=== PATIENT | female | born 1975 | race American Indian/Alaskan Native ===

== ENCOUNTER 2019-08-07 12:42 | Emergency (ER) | payer SELFPAY ==
--- NOTE | 2019-08-07 12:56 | Event Note ---
ED Screening Note ED Screening Note: hx of asthma couple of weeks +sob, wheezing, chest tightness no fever no sick contacts no productive couhv= has not used an inhaler in two years non smoker no allergies to meds This initial assessment/diagnostic orders/clinical plan/treatment(s) is/are subject to change based on patients health status, clinical progression and re- assessment by fellow clinical providers in the ED. Further treatment and workup at subsequent clinical providers discretion. Patient/guardian urged not to elope from the ED as their condition may be serious if not clinically assessed and managed. Initial orders include: CXR neb tx, steroids
[2019-08-07] MEDS ORDERED: ALBUTEROL 2.5 MG/3 ML NEBU IH ONE (12:57)
[2019-08-07] MEDS ORDERED: IPRATROPIUM 0.02% NEBU 2.5 ML IH ONE (12:57)
[2019-08-07] MEDS ORDERED: dexAMETHasone 20 MG/5 ML VIAL IV ONE (12:57)
--- NOTE | 2019-08-07 13:40 | XRay Report ---
CHEST 1 VIEW INDICATION: SOB. COMPARISON: None. FINDINGS: Support devices: None. Heart: Normal. Lungs/Pleura: No acute pulmonary or pleural findings. IMPRESSION: 1. No acute findings. Signer Name: Kishore Mancuso MD Signed: 08/07/2019 1:35 PM Workstation Name: [id number]
--- NOTE | 2019-08-07 14:20 | Emergency Department Report ---
ED Shortness of Breath HPI - General Chief Complaint: Adult Asthma Stated Complaint: ASTHMA Time Seen by Provider: 08/07/19 12:54 Source: patient Mode of arrival: Ambulatory Limitations: No Limitations - History of Present Illness Initial Comments: Mrs. Cavanaugh is a 43-year-old female with history of asthma who presents with shortness of breath for several weeks. She has wheezing. She denies fever. She denies sick contacts. No productive cough. Has not used an inhaler in 2 years. Has a history of tracheostomy status post prolonged postsurgical course, sepsis at [facility]. She admits to anxiety and depression which has affected her breathing. She denies suicidal ideation or homicidal ideation. She does admit to being under a lot of stress. No use of oral contraceptives. Patient had tubal ligation over 10 years ago. MD Complaint: shortness of breath -: Gradual, week(s) Severity: mild Consistency: constant Improves With: nothing Worsens With: nothing Known History Of: asthma - Related Data Previous Rx's Medication Instructions Recorded Last Taken Type Albuterol INH(or & Nicu Only) 2 puff IH QID PRN #8.5 gram 08/07/19 Unknown Rx [ProAir HFA Inhaler] predniSONE [Deltasone] 3 tab PO QDAY 3 Days #6 tab 08/07/19 Unknown Rx Allergies Allergy/AdvReac Type Severity Reaction Status Date / Time No Known Allergies Allergy Unverified 08/07/19 12:44 ED Review of Systems ROS: Stated complaint: ASTHMA Other details as noted in HPI Comment: All other systems reviewed and negative Constitutional: denies: fever, malaise Cardiovascular: denies: chest pain ED Past Medical Hx - Past Medical History Previous Medical History?: Yes Hx Asthma: Yes Additional medical history: COMA X 2 MONTHS, sepsis - Surgical History Past Surgical History?: Yes Additional Surgical History: section x2, tubal ligation, incision and drainage of "cyst" - Social History Smoking Status: Never Smoker Substance Use Type: None - Medications Home Medications: Home Medications Medication Instructions Recorded Confirmed Last Taken Type Albuterol INH(or & Nicu Only) 2 puff IH QID PRN #8.5 gram 08/07/19 Unknown Rx [ProAir HFA Inhaler] predniSONE [Deltasone] 3 tab PO QDAY 3 Days #6 tab 08/07/19 Unknown Rx ED Physical Exam - General Limitations: No Limitations General appearance: alert, in no apparent distress - Head Head exam: Present: atraumatic, normocephalic - Eye Eye exam: Present: normal appearance - ENT ENT exam: Present: mucous membranes moist - Neck Neck exam: Present: normal inspection, full ROM - Respiratory Respiratory exam: Present: normal lung sounds bilaterally. Absent: respiratory distress, wheezes, rales, rhonchi - Cardiovascular Cardiovascular Exam: Present: regular rate, normal rhythm, normal heart sounds. Absent: systolic murmur, diastolic murmur, rubs, gallop - GI/Abdominal GI/Abdominal exam: Present: soft, normal bowel sounds. Absent: distended, tenderness, guarding, rebound - Extremities Exam Extremities exam: Present: normal inspection - Back Exam Back exam: Present: normal inspection - Neurological Exam Neurological exam: Present: alert, oriented X3 - Psychiatric Psychiatric exam: Present: normal affect, depressed, anxious. Absent: suicidal ideation - Skin Skin exam: Present: warm, dry, intact, normal color. Absent: rash ED Course Vital Signs 08/07/19 08/07/19 08/07/19 12:47 12:48 13:48 Temperature 98.6 F Pulse Rate 89 83 Pulse Rate [ 94 H Anterior Bilateral Throughout] Respiratory 20 Rate Respiratory 18 Rate [Anterior Bilateral Throughout] Blood Pressure 136/85 O2 Sat by Pulse 99 99 Oximetry ED Medical Decision Making - Radiology Data Radiology results: report reviewed Chest radiograph no acute findings - Medical Decision Making 1. Acute asthma exacerbation: Patient received bronchodilator therapy IM Decadron in the emergency department. Prescribed prednisone burst therapy and albuterol MDI PERC negative for PE, no evidence of pneumothorax or pneumonia on chest x-ray no other symptoms to indicate COVID-19 infection 2. Anxiety depression patient declined offer to speak with our mental health jet piercer operator. Critical care attestation.: If time is entered above; I have spent that time in minutes in the direct care of this critically ill patient, excluding procedure time. ED Disposition Clinical Impression: Acute asthma exacerbation Disposition: DC- TO HOME OR SELFCARE Is pt being admited?: No Does the pt Need Aspirin: No Condition: Stable Instructions: Asthma (ED) Prescriptions: predniSONE [Deltasone] 3 tab PO QDAY 3 Days #6 tab Albuterol INH(or & Nicu Only) [ProAir HFA Inhaler] 2 puff IH QID PRN #8.5 gram PRN Reason: Shortness Of Breath Referrals: HAYLEY RANKIN MD [Staff Physician] - 3-5 Days
[2019-08-07 16:17] VITALS: BP 117/81
== END 2019-08-07 16:05 | disposition home or self-care (01) ==
LOC: ED 12:42
DX: J45.901 Unspecified asthma with (acute) exacerbation (principal); Z98.890 Other specified postprocedural states; Z79.899 Other long term (current) drug therapy; Z98.51 Tubal ligation status
CPT/HCPCS: 71045; 94640; 96374; 99283; J1100; 94644